=== PATIENT | male | born 1985 | race Caucasian/White ===

== ENCOUNTER 2018-07-03 16:40 | Emergency (ER) | payer OTHER ==
[~2018-07-03] VITALS: Ht 177.8 cm; Wt 99.8 kg
[2018-07-03] MEDS ORDERED: NITROGLYCERIN OINT 1 GM PACKET TP ONE (17:15)
[2018-07-03] MEDS ORDERED: BISACODYL 10 MG SUPP.RECT RC ONE (17:16)
[2018-07-03] MEDS ORDERED: LIDOCAINE/PRILOCAINE 5 GM CREAM.GM. ONE (17:17)
[2018-07-03] MEDS: BISACODYL 10 MG SUPP.RECT RC ONE (17:24)
[2018-07-03] MEDS: NITROGLYCERIN OINT 1 GM PACKET TP ONE (17:49)
[2018-07-03] MEDS: ONDANSETRON IV *ER 4 MG/2 ML VIAL IV ONE (18:00)
[2018-07-03] MEDS: HYDROMORPHONE 1 MG/1 ML DISP.SYRIN IV ONE (18:00)
[2018-07-03] MEDS ORDERED: ONDANSETRON 4 MG/2 ML VIAL ONE (18:04)
[2018-07-03] MEDS ORDERED: HYDROMORPHONE 2 MG/1 ML DISP.SYRIN ONE (18:04)
[2018-07-03] MEDS: KETOROLAC TROMETHAMINE 30 MG INJ IM ONE (18:06)
[2018-07-03] MEDS: MINERAL OIL FLEET ENEMA 133 ML BOTTLE RC ONE ×2 (18:08→18:36)
--- NOTE | 2018-07-03 19:01 | NUR ---
PO CONTRAST STARTED
[2018-07-03] MEDS ORDERED: DIATR MEGLU/DIATRIZOATE SODIUM 120 ML BOTTLE ONE (19:02)
[2018-07-03] MEDS: DIATR MEGLU/DIATRIZOATE SODIUM 120 ML BOTTLE PO ONE (19:02)
--- NOTE | 2018-07-03 19:07 | NUR ---
HANDS OFF REPORT GIVEN TO LENA ZUNIGA
--- NOTE | 2018-07-03 20:30 | NUR ---
Pt refused CT scan. notified.
[2018-07-03 20:46] VITALS: BP 122/74
--- NOTE | 2018-07-03 20:46 | NUR ---
Patient discharged to home in stable conditon. Written and verbal after care instructions given. Patient verbalizes understanding of instructions.
== END 2018-07-03 20:47 | disposition home or self-care (01) ==
LOC: ER 16:42
DX: K56.41 Fecal impaction (principal)
CPT/HCPCS: A4663; J1170; J2405; Q9963